=== PATIENT | female | born 2000 | race Caucasian/White ===

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

== ENCOUNTER 2023-08-30 19:27 | Emergency (ER) | payer MEDICAID ==
[~2023-08-30] VITALS: Ht 152.4 cm; Wt 88.9 kg
[2023-08-30 20:02] VITALS: BP 116/71; PULSE 79; TEMP 98.3; O2SAT 98
[2023-08-30] MEDS ORDERED: ketorolac tromethamine 15mg/ml inj. IM ONE (20:30)
[2023-08-30] MEDS ORDERED: PRED50TA PO (20:43)
[2023-08-30] MEDS ORDERED: CYCL-1 PO (20:43)
[2023-08-30] MEDS ORDERED: IBUP-1984 PO (20:43)
[2023-08-30] MEDS: dexamethasone sod phosphate 10mg/ml inj PO STA (21:04)
[2023-08-30 21:05] VITALS: RESP 16
[2023-08-30] MEDS: cyclobenzaprine 10mg tablet PO ONE (21:05)
[2023-08-30] MEDS: ketorolac trometh. 30mg/ml inj. IM ONE (21:05)
[2023-08-31] MEDS ORDERED: predniSONE 20 mg tablet PO ONE (16:45)
[2023-08-31] MEDS ORDERED: cyclobenzaprine 10mg tablet PO ONE (16:45)
[2023-08-31] MEDS ORDERED: ketorolac tromethamine 15mg/ml inj. IM ONE (16:45)
== END 2023-08-30 21:52 | disposition home or self-care (01) ==
LOC: ER 19:28
DX: S39.012A Strain of muscle, fascia and tendon of lower back, initial encounter (principal); Z79.899 Other long term (current) drug therapy; Z91.030 Bee allergy status; X58.XXXA Exposure to other specified factors, initial encounter; Y93.89 Activity, other specified; Y92.89 Other specified places as the place of occurrence of the external cause; Y99.8 Other external cause status
CPT/HCPCS: 96372; 99283; J1100; J1885